=== PATIENT | female | born 1965 | race Caucasian/White ===

== ENCOUNTER 2019-02-24 19:02 | Inpatient (IN) | payer SELFPAY ==
[2019-02-24] MEDS ORDERED: Aspirin Chewable 81 MG TAB ONE (19:32)
[2019-02-24] MEDS ORDERED: Nitroglycerin 0.4 MG TAB 1 EACH ONE (19:32)
[2019-02-24 19:38] LABS: #Eosinphils 0.3 thou/uL (0.0-0.7); #Lymphocytes 1.8 thou/uL (1.20-3.40); #Monocytes 0.6 thou/uL (0.11-0.59); #Neutrophils 4.6 thou/uL (1.40-6.50); %Basophils 0.5 % (0.0-1.0); %Eosinophils 3.4 % (0.0-10.0); %Lymphocytes 25.1 % (21.0-51.0); %Monocytes 7.6 % (0.0-10.0); %Neutrophils 63.4 % (42.0-75.0); Hemoglobin 13.8 g/dL (12.0-16.0); Mean Corpuscular HGB CONC 33.8 g/dL (32.0-36.0); Mean Corpuscular Hemoglobin 29.4 pg (27.0-31.0); Mean Corpuscular Volume 87.1 fL (78.0-98.0); Mean Platelet Volume 7.2 fL (7.4-10.4); Platelet Count 261 thou/uL (130-400); White Blood Cell (WBC) Count 7.3 thou/uL (4.8-10.8)
--- NOTE | 2019-02-24 19:45 | RAD ---
FRONTAL RADIOGRAPH CHEST: 02/24/19 COMPARISON: 06/18/16 HISTORY: Chest pain for three days. FINDINGS: No pneumothorax, pleural fluid, focal consolidation, or alveolar edema. Heart and mediastinal contour s are unremarkable. IMPRESSION: No acute findings. POS: ANDERSON
[2019-02-24 19:58] LABS: ALT (SGPT) 48 U/L (8-55); AST (SGOT) 26 U/L (5-34); Albumin 4.2 g/dL (3.5-5.0); Alkaline Phosphatase 87 U/L (40-110); Anion Gap 15 mmol/L (10-20); BUN (Urea Nitrogen) 13 mg/dL (9.8-20.1); Bilirubin, Total 0.3 mg/dL (0.2-1.2); CK (CPK) 80 U/L (29-168); Calc. Creatinine Clearance 0 mL/min (70-130); Calcium 9.3 mg/dL (7.8-10.44); Carbon Dioxide 25 mmol/L (22-29); Chloride 102 mmol/L (98-107); Estimated GFR-MDRD 74; Globulin 3.1 g/dL (2.4-3.5); Glucose 189 mg/dL (70-105); Potassium 3.9 mmol/L (3.5-5.1); Protein, Total 7.3 g/dL (6.0-8.3); Sodium 138 mmol/L (136-145)
[2019-02-24] MEDS ORDERED: Acetaminophen 500 MG TAB PO PRN (23:38)
[2019-02-24] MEDS ORDERED: Nitroglycerin 0.4 MG TAB (25 Tab Bottle) PO PRN (23:38)
[2019-02-24] MEDS ORDERED: Ondansetron PF 4 MG/2 ML Vial IVP PRN (23:38)
[2019-02-24] MEDS ORDERED: Ondansetron ODT 4 MG TAB PO PRN (23:38)
[2019-02-24] MEDS ORDERED: hydrALAZINE 20 MG/ML VIAL SLOW IVP PRN (23:38)
[2019-02-25 02:15] LABS: Troponin I Less than 0.010 ng/mL (< 0.028)
--- NOTE | 2019-02-25 05:23 | HP ---
PRIMARY CARE PROVIDER: Dr. Shilo Das. CHIEF COMPLAINT: Chest pain. HISTORY OF PRESENT ILLNESS: This is a 53-year-old female, who was initially evaluated at [facility] Emergency Department being referred by her primary care provider for ongoing chest pain. The patient underwent CT imaging of her coronary arteries showing diffuse calcium deposition as well as narrowing concerning for severe stenosis most notable of the left anterior descending. The patient admits to decreased activity and exercise tolerance with rapid shortness of breath and fatigue with minimal activity or ambulation. The patient admits to difficulty carrying on conversations due to increased shortness of breath with speaking. The patient denied any specific increased lower extremity swelling, but has noted chest pain with radiation to her shoulders and left upper extremity. The patient denied any known coronary artery disease and underwent a nuclear cardiac stress test in 2017 showing no reversible or fixed ischemia. The patient denies taking chronic aspirin therapy, but has been treated for hypertension and diabetes mellitus with oral therapy. The patient does admit to a strong family history of early coronary artery disease. The patient denies any current tobacco use, but does admit to remote tobacco use. The patient initially in the emergency room rated her chest pain as 10/10 with currently 3/10. The patient denied any documented fever, chills, trauma or injury. In the emergency room, the patient received sublingual nitroglycerin x2 doses in addition to aspirin 324 mg. Chest imaging was unremarkable and the patient was referred to the Hospitalist Service for evaluation. PAST MEDICAL HISTORY: 1. Hypertension. 2. Hypothyroidism. 3. Diabetes mellitus type 2. 4. Hyperlipidemia. 5. Anxiety/depression. PAST SURGICAL HISTORY: 1. Status post LASIK repair. 2. Status post breast cyst removal. 3. Status post bilateral tubal ligation. 4. Status post adenoidectomy. CURRENT MEDICATIONS: 1. Levothyroxine 125 mcg p.o. daily. 2. Lisinopril 20 mg p.o. daily. 3. Metformin 500 mg p.o. b.i.d. 4. Lipitor 80 mg p.o. daily. 5. Citalopram 20 mg p.o. daily. 6. Advair Diskus two puffs inhaled b.i.d. ALLERGIES: NO KNOWN DRUG ALLERGIES. FAMILY HISTORY: Multiple family members with coronary artery disease. SOCIAL HISTORY: The patient is . Resides in [place], [place]. Self-employed. No current alcohol, tobacco, or illicit drug use. REVIEW OF SYSTEMS: CONSTITUTIONAL: Negative for weight loss or gain, ability to conduct usual activities. SKIN: Negative for rash, itching. EYES: Negative for double vision, pain. ENT/MOUTH: Negative for nose bleeding, neck stiffness, pain, tenderness. CARDIOVASCULAR: Negative for palpitations, dyspnea on exertion, orthopnea. RESPIRATORY: Negative for shortness of breath, wheezing, cough, hemoptysis, fever or night sweats. GASTROINTESTINAL: Negative for poor appetite, abdominal pain, heartburn, nausea , vomiting, constipation, or diarrhea. GENITOURINARY: Negative for urgency, frequency, dysuria, nocturia. MUSCULOSKELETAL: Negative for pain, swelling. NEUROLOGIC/PSYCHIATRIC: Negative for anxiety, depression. ALLERGY/IMMUNOLOGIC: Negative for skin rash, bleeding tendency. Otherwise negative except as stated per HPI. PHYSICAL EXAMINATION: VITAL SIGNS: On admission, blood pressure 188/88, pulse 75, respiratory rate 20 , temperature 97.8 degrees Fahrenheit, O2 saturation 99% on room air. GENERAL APPEARANCE: This is a 53-year-old female, alert and oriented x3, pleasant, responsive, in no acute distress. HEENT: Pupils are equal, round, reactive to light and accommodation. Extraocular muscles are intact. No scleral icterus. No conjunctival injection. Nares are patent. OP is clear. Teeth in good repair. NECK: Supple. No cervical adenopathy. No thyromegaly. No carotid bruits. No JVD appreciated. Cervical spine with full active and passive range of motion. No meningeal signs noted. CHEST: Lungs are clear to auscultation bilaterally. CARDIOVASCULAR: S1, S2 without noted murmur, rub, or gallop. ABDOMEN: Obese, soft, nontender, and nondistended. Bowel sounds are positive in all 4 quadrants. There is no hepatosplenomegaly. No abdominal bruits. No rebound or guarding appreciated. EXTREMITIES: Warm and dry with fair turgor. No clubbing, cyanosis, or asymmetric edema appreciated. Pulses palpable distally at the dorsalis pedis, posterior tibial, and popliteal arteries bilaterally. Capillary refill less than 2 seconds. NEUROLOGIC: Cranial nerves 2 through 12 are grossly intact. No focal or lateralizing signs appreciated. PERTINENT LABORATORY AND X-RAY FINDINGS: Basic metabolic profile within normal limits. LFTs within normal limits. Total CK of 80. Troponin I negative x2. CBC within normal limits. Portable chest x-ray dated 02/24/2019, showed no acute cardiopulmonary process. CT angiogram of the coronary arteries dated 02/23/2019 , showed multiple plaques limiting luminal assessment. Concern for severe stenosis of the LAD. Telemetry shows sinus mechanism with heart rates in the 70s. EKG dated 02/24/2019, by my interpretation shows sinus mechanism with heart rates in the 70s. Normal R-wave progression noted in the precordial leads. Normal axis. No acute ST-T wave changes appreciated. ASSESSMENT AND PLAN: 1. Chest pain. The patient will be observed on the telemetry unit. CT angiogram of the coronary arteries showing diffuse calcium deposition and concern for LAD stenosis. Consult Cardiology Service for further evaluation and consideration for left heart catheterization. Continue aspirin 325 mg daily. Check fasting lipid profile. Continue Lipitor 80 mg p.o. daily. Check 2D transthoracic echocardiogram for wall motion abnormality and ejection fraction. 2. Hypertension. Labile. Resume home blood pressure regimen and monitor clinical response. 3. Hypothyroidism. Continue levothyroxine 125 mcg daily. 4. Hyperlipidemia. Continue Lipitor 80 mg p.o. at bedtime. 5. Diabetes mellitus type 2. Insulin sliding scale for reflexive coverage. ADA diet when tolerating p.o. intake. Hold metformin pending cardiac evaluation. 6. Prophylaxis. SCDs while in bed. Pepcid 20 mg p.o. b.i.d.. CODE STATUS: Full. Surrogate medical decision maker is the patient's spouse. Job ID: [id number] [facility]
[2019-02-25 05:41] LABS: Cardiac Risk 7.9 (Less than 4.5)
[2019-02-25 05:43] LABS: Troponin I Less than 0.010 ng/mL (< 0.028)
[2019-02-25] MEDS: Mometasone/Formoterol 120 PUFF INHALER INH SCH ×2 (07:36→19:12)
--- NOTE | 2019-02-25 08:30 | CON ---
DATE OF CONSULTATION: REASON FOR CONSULTATION: Chest pain and abnormal coronary CTA. HISTORY OF PRESENT ILLNESS: Ms. De La Cruz is a 53-year-old woman who recently presented with chest discomfort and shortness of breath. She states her shortness of breath has been noted over the last 2 weeks. Prior to that, she had no current symptoms. She also complains of chest tightness. It occurs mainly with exertion. She proceed to an outlying emergency room, where she underwent a coronary CTA. The CT scan did suggest significant calcification in the proximal to mid LAD suggesting greater than 70% stenosis. PAST MEDICAL HISTORY: Hypertension, hypothyroidism, diabetes mellitus, hyperlipidemia, anxiety and depression, BTL, adenoidectomy and LASIK repair. HOME MEDICATIONS: Include lisinopril, metformin, levothyroxine, Lipitor, citalopram, and Advair. ALLERGIES: NONE. 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 No current tobacco or alcohol use. REVIEW OF SYSTEMS: A 10-point review of systems is reviewed as above, otherwise negative. PHYSICAL EXAMINATION: GENERAL: She is morbidly obese with BMI of 43. VITAL SIGNS: Blood pressure 144/71, pulse 70 and temperature afebrile. NEUROLOGIC: The patient is alert and oriented x3 with no focal neurologic deficits. HEENT: Sclerae without icterus. Mouth has moist mucous membranes with normal pallor. NECK: No JVD. Carotid upstroke brisk. No bruits bilaterally. LUNGS: Clear to auscultation with unlabored respirations. BACK: No scoliosis or kyphosis. CARDIAC: Regular rate and rhythm with normal S1 and S2. No S3 or S4 noted. No significant rubs, murmurs, thrills, or gallops noted throughout the precordium. PMI is not displaced. There is no parasternal heave. ABDOMEN: Soft, nontender, nondistended. No peritoneal signs present. No hepatosplenomegaly. No abnormal striae. EXTREMITIES: 2+ femoral and 2+ dorsalis pedis pulses. No cyanosis, clubbing, or edema. SKIN: No gross abnormalities. DIAGNOSTIC STUDIES: EKG shows a normal sinus rhythm with no acute ST-T wave changes. CK and troponin negative. Hemoglobin 13.8. Creatinine 0.81. IMPRESSION: 1. Chest pain. 2. Shortness of breath. 3. Coronary artery disease. 4. Diabetes mellitus. RECOMMENDATIONS: Ms. De La Cruz's symptoms certainly suggest angina. I discussed medical therapy versus stress study versus proceeding with coronary angiography. I discussed risks and benefits of all 3 options. She opted to proceed with coronary angiography. This certainly seems reasonable given the findings on coronary CTA. I discussed procedure in full detail with Ms. De La Cruz. Risks included, but not limited to the following: I discussed the procedure in full detail with the patient. The risks of the procedure were also discussed. The risks of the procedure include but are not limited to the following: , stroke, [place], need for emergency surgery, loss of limb, bleeding, and infection, as well as a reaction to the dye causing kidney failure and needing long-term dialysis. I also discussed the risks of PCI to include all of the above including coronary dissection and perforation in addition to acute stent thrombosis and restenosis. All questions about the procedure were answered. Given the above, the patient agreed to proceed with coronary angiography and possible PCI. All questions were answered given the above. She agreed to proceed with above procedure. Further recommendations pending the above. Job ID: [id number]
[2019-02-25] MEDS: Famotidine 20 MG TAB PO SCH ×2 (08:49→19:42)
[2019-02-25] MEDS: Lisinopril 20 MG TAB PO SCH (08:49)
[2019-02-25] MEDS ORDERED: Escitalopram Oxalate 20 mg Tablet PO SCH (09:00)
[2019-02-25] MEDS ORDERED: Levothyroxine Sodium 125 MCG TAB PO SCH (09:00)
[2019-02-25] MEDS ORDERED: Aspirin 325 mg Enteric Coated Tablet PO SCH (09:00)
[2019-02-25] MEDS ORDERED: Communication Order-Pharmacy FS SCH ×2 (10:45→14:16)
[2019-02-25] MEDS ORDERED: Heparin 10,000 UNITS/1 ML VIAL ONE (11:43)
[2019-02-25] MEDS ORDERED: Verapamil 5 MG/2 ML VIAL ONE (11:43)
[2019-02-25] MEDS ORDERED: Lidocaine 1% (PF) 30 ML VIAL ONE (11:44)
[2019-02-25] MEDS ORDERED: Heparin (Artline) 1,000 ML ONE (11:44)
[2019-02-25] MEDS ORDERED: Nitroglycerin 100MG/250ML BOT 250 ML ONE (11:44)
[2019-02-25] MEDS ORDERED: Fentanyl 100 MCG/2 ML VIAL ONE (12:49)
[2019-02-25] MEDS ORDERED: Midazolam HCl 2 mg/2 ml Vial ONE (12:49)
[2019-02-25] MEDS ORDERED: Nitroglycerin 0.4 MG TAB (25 Tab Bottle) SL PRN (13:31)
[2019-02-25] MEDS ORDERED: Acetaminophen/Codeine 30-300mg Tablet PO PRN ×2 (13:31)
[2019-02-25] MEDS ORDERED: Sodium Chloride 0.9% 200 ML IV PRN (13:31)
[2019-02-25] MEDS ORDERED: Iopamidol 370 76% 100 ML VIAL ONE (13:36)
[2019-02-25] MEDS: Sodium Chloride 0.9% 1,000 ML IV SCH ×2 (15:00→20:45)
[2019-02-25 15:21] LABS: Hemoglobin A1c 7.1 % (4.0-6.0)
--- NOTE | 2019-02-25 17:36 | CON ---
DATE OF CONSULTATION: HISTORY OF PRESENT ILLNESS: This is a 53-year-old female with multiple cardiovascular risk factors, who was complaining of some chest discomfort and dyspnea on exertion and referred by her primary care physician from [facility] to get a CT calcium study. This demonstrated significant calcification, particularly in her LAD distribution. Once she found this out, her pain became more significant, radiating down into the left arm, and lasted for about 3 days, at which time she presented to the emergency room, where she was found to have normal cardiac enzymes. Resting EKG was not remarkable. Cardiac catheterization demonstrated significant disease in the LAD and diagonal, both separate, as well as a very small ramus with significant disease, a normal OM. Right coronary artery was diffusely diseased with a codominant PDA and take vessels coming off the inferior surface of the heart with the 2nd one appearing to be slightly larger than the 1st. PAST MEDICAL HISTORY: As mentioned, this is positive for multiple cardiovascular risk factors including a pack per day smoking history, although she states that she quit smoking about 4 weeks ago, although still wheezes. She has diabetes mellitus with an A1c of 7. She has hypertension and dyslipidemia. She also has anxiety and depression. PAST SURGICAL HISTORY: Includes; 1. LASIK. 2. Tubal ligation. 3. Tonsillectomy and adenoidectomy. SOCIAL HISTORY: She is accompanied by her fred. She works as an senior project accountant and her daughter is also present and is a nurse at the hospital. ALLERGIES: SHE HAS NO KNOWN ALLERGIES. MEDICATIONS AT HOME: Include; 1. Advair Diskus one inhalation b.i.d. 2. Atorvastatin 80 a day. 3. Metformin 500 a day. 4. Lisinopril 20 a day. 5. Levothyroxine 125 a day. 6. Lexapro 20 a day. PHYSICAL EXAMINATION: VITAL SIGNS: Her blood pressure is 150/90, heart rate is 66. GENERAL: On examination, she is alert, cooperative lady. Height 5 feet 6 inches, weight 270, BMI 44. NECK: No carotid bruits. LUNGS: Clear to auscultation. CARDIAC: Regular rate and rhythm. No murmurs. ABDOMEN: Obese and nontender. EXTREMITIES: She has no peripheral edema. Palpable pedal pulses. She is right arm dominant with a good left radial pulse. PLAN: Plan at this time is for coronary artery bypass grafting to the LAD, diagonal, and right PDA. Informed consent has been obtained. Job ID: [id number]
[2019-02-25] MEDS ORDERED: Atorvastatin Calcium 40 MG TAB PO SCH (21:00)
[2019-02-26] MEDS ORDERED: CEFAZOLIN 2 GM in Premix Bag 1 BAG IVPB SCH (00:15)
[2019-02-26] MEDS: Sodium Chloride 0.9% 1,000 ML IV SCH (05:03)
[2019-02-26] MEDS: Lisinopril 20 MG TAB PO SCH (05:03)
[2019-02-26] MEDS: Mometasone/Formoterol 120 PUFF INHALER INH SCH (07:53)
--- NOTE | 2019-02-26 08:24 | PRG ---
DATE OF SERVICE: 02/26/2019 SUBJECTIVE: Ms. De La Cruz is doing well. No current complaints. No chest pain or pressure noted. She is scheduled for CV surgery this afternoon. OBJECTIVE: VITAL SIGNS: Blood pressure 112/60, pulse 76, temperature 98.3. LUNGS: Clear to auscultation. HEART: Regular rate and rhythm. ABDOMEN: Soft, nontender, nondistended. EXTREMITIES: No edema. PERTINENT LABORATORY DATA: Hemoglobin 13.8. IMPRESSION: 1. Severe coronary artery disease. 2. Tobacco abuse. 3. Diabetes mellitus. RECOMMENDATIONS: The patient is scheduled for bypass surgery this afternoon. Continue aspirin and atorvastatin in addition to lisinopril. Add low-dose beta-dora therapy. Job ID: [id number]
[2019-02-26] MEDS ORDERED: Acetaminophen/Codeine 30-300mg Tablet PO PRN (14:17)
[2019-02-26] MEDS ORDERED: Acetaminophen 325 MG TAB PO PRN (14:17)
[2019-02-26] MEDS ORDERED: Ondansetron ODT 4 MG TAB PO PRN (14:18)
[2019-02-26] MEDS ORDERED: Ondansetron PF 4 MG/2 ML Vial IVP PRN (14:18)
[2019-02-26] MEDS ORDERED: Bisacodyl 10 MG SUPP PR PRN (14:26)
[2019-02-26] MEDS ORDERED: Escitalopram Oxalate 20 mg Tablet PO SCH (14:30)
[2019-02-26] MEDS ORDERED: Polyethylene Glycol 3350 17 GM Packet PO SCH (14:30)
[2019-02-26] MEDS ORDERED: Aspirin 325 mg Enteric Coated Tablet PO SCH (14:30)
[2019-02-26] MEDS ORDERED: Senokot S 8.6-50 MG TAB PO SCH (14:45)
[2019-02-26] MEDS: Nitroglycerin 0.4 MG TAB (25 Tab Bottle) SL PRN ×2 (15:51→16:01)
[2019-02-26] MEDS ORDERED: Mometasone/Formoterol 120 PUFF INHALER INH SCH (18:30)
--- NOTE | 2019-02-26 20:48 | PDOC.HOSPP ---
- Subjective Encounter Date: 02/26/19 Encounter Time: 14:00 Subjective: Patient seen and examined for CAD. No CP. No new complaints. No overnight events - Objective Vital Signs & Weight: Vital Signs (12 hours) Temp Pulse Resp BP Pulse Ox 02/26/19 19:20 98.3 F 80 13 127/60 95 02/26/19 18:57 76 16 99 02/26/19 15:25 98.5 F 82 15 122/65 96 02/26/19 11:57 98.2 F 67 20 143/78 H 94 L Weight Weight 276 lb 9.6 oz I&O: 02/25/19 02/26/19 02/27/19 06:59 06:59 06:59 Intake Total 360 2375 Output Total 400 900 Balance -40 1475 Result Diagrams: 02/24/19 19:25 02/24/19 19:25 EKG Reviewed by me: Yes (Tele SR) Hospitalist ROS - Review of Systems Respiratory: denies: cough, dry, shortness of breath, hemoptysis, SOB with excertion, pleuritic pain, sputum, wheezing, other Cardiovascular: denies: chest pain, palpitations, orthopnea, paroxysmal noc. dyspnea, edema, light headedness, other - Medication Medications: Active Medications Generic Name Dose Route Start Last Admin Trade Name Freq PRN Reason Stop Dose Admin Mometasone Furoate/Formoterol Fumar 2 puff 02/26/19 18:30 02/26/19 18:57 Dulera 200 Mcg/5 Mcg Inhaler INH 02/26/19 23:59 2 puff BID-RT DYLON Administration Nitroglycerin 0.4 mg 02/26/19 14:17 02/26/19 16:01 Nitrostat SL 0.4 mg Q5MIN PRN Administration Chest Pain - Exam General Appearance: NAD Neck: supple, no JVD Heart: RRR, no gallops Respiratory: CTAB, no rales Gastrointestinal: soft, non-tender, normal bowel sounds Extremities: no edema Hosp A/P - Plan DVT proph w/SCDs CP Severe CAD Morbid Obesity 44.6 DM2 Anxiety PLAN: Cont ASA/Statins/ACEI Await CABG Cont other meds
[2019-02-26] MEDS ORDERED: Atorvastatin Calcium 40 MG TAB PO SCH (21:00)
[2019-02-27] MEDS ORDERED: Albumin 5% 500 ML ONE (06:39)
[2019-02-27] MEDS ORDERED: Midazolam HCl 5 mg/5 ml Vial ONE (06:47)
[2019-02-27] MEDS ORDERED: Fentanyl 250 MCG/5 ML VIAL ONE (06:47)
[2019-02-27] MEDS ORDERED: Vecuronium 10 MG VIAL ONE ×2 (06:48→11:00)
[2019-02-27] MEDS ORDERED: Dexmedetomidine 200 MCG/2 ML VIAL ONE (06:48)
[2019-02-27] MEDS ORDERED: Midazolam HCl 2 mg/2 ml Vial ONE (07:07)
[2019-02-27] MEDS ORDERED: Heparin 10,000 UNITS/1 ML VIAL 30,000 UNITS in Sodium Chloride 0.9% 1,000 ML FS SCH (07:30)
[2019-02-27] MEDS ORDERED: Insulin Regular 300 UNITS/3 ML VIAL ONE (08:42)
[2019-02-27] MEDS ORDERED: Lisinopril 20 MG TAB PO SCH (09:00)
[2019-02-27] MEDS ORDERED: Protamine Sulfate 250 MG/25 ML VIAL ONE (11:00)
[2019-02-27] MEDS ORDERED: Cardioplegic Soln 1,000 ML BAG ONE (11:00)
[2019-02-27] MEDS ORDERED: Heparin 30,000 units/30 ml VIAL ONE (11:00)
[2019-02-27] MEDS ORDERED: Norepinephrine 4 MG/4 ML VIAL ONE (11:00)
[2019-02-27] MEDS ORDERED: Sodium Bicarb 50 MEQ/50 ML Abboject 8.4% SYRINGE ONE (11:00)
[2019-02-27] MEDS ORDERED: Magnesium Sulfate 1 GM/2 ML VIAL ONE (11:00)
[2019-02-27] MEDS ORDERED: Thrombin 5000 UNITS/5 ML VIAL ONE (11:00)
[2019-02-27] MEDS ORDERED: Heparin 5,000 UNITS/ML VIAL ONE (11:00)
[2019-02-27] MEDS ORDERED: PROPOFOL 200 MG/20 ML VIAL ONE (11:00)
[2019-02-27] MEDS ORDERED: Papaverine 60 MG/2 ML VIAL ONE (11:00)
[2019-02-27] MEDS ORDERED: Potassium Chloride 60 MEQ/30 ML VIAL ONE (11:00)
[2019-02-27] MEDS ORDERED: Calcium Chloride 1 GM/10 ML Abboject SYRINGE ONE (11:00)
[2019-02-27] MEDS ORDERED: Lidocaine 1% PF 5 ML VIAL ONE (11:00)
[2019-02-27] MEDS ORDERED: PHENYLEPHRINE-NS 100 MCG/ML 10 ML SYRINGE ONE (11:00)
[2019-02-27] MEDS ORDERED: ePHEDrine/0.9% NaCl/PF SYRINGE 50 mg/10 ml ONE (11:00)
[2019-02-27] MEDS ORDERED: Lidocaine 2% PF 100 mg/5 ml Syringe ONE (11:00)
[2019-02-27] MEDS ORDERED: Glycopyrrolate 0.2 MG/ML 5 ML SYRINGE ONE (11:00)
[2019-02-27] MEDS ORDERED: Rocuronium Bromide 10 MG/ML (10ML VIAL) ONE (11:00)
[2019-02-27] MEDS ORDERED: Aminocaproic Acid 5 GM/20 ML VIAL ONE (11:00)
[2019-02-27] MEDS ORDERED: Potassium Chloride 20 MEQ/100 ML PREMIX BAG IVPB PRN (12:55)
[2019-02-27] MEDS ORDERED: Promethazine HCl 25 MG/ML VIAL IM PRN (12:55)
[2019-02-27] MEDS ORDERED: hydrALAZINE 20 MG/ML VIAL SLOW IVP PRN (12:55)
[2019-02-27] MEDS ORDERED: Norepinephrine 8 MG/0.9% NS 250 ML IVPB PRN (12:55)
[2019-02-27] MEDS ORDERED: Post-Op Insulin Drip Protocol IVPB ONE (12:55)
[2019-02-27] MEDS ORDERED: Mag-Al 1200 mg/1200 mg/30 ML UDCUP PO PRN (12:55)
[2019-02-27] MEDS ORDERED: niCARdipine 25 MG in Sodium Chloride 0.9% 250 ML 240 ML IVPB PRN (12:55)
[2019-02-27] MEDS ORDERED: DOPamine 400 MG/D5W 250 ML 250 ML IVPB PRN (12:55)
[2019-02-27] MEDS ORDERED: Guaifenesin DM 100-10/5 ML UDCUP PO PRN (12:55)
[2019-02-27] MEDS ORDERED: HYDROcodone/Acetaminophen 5/325 mg Tablet PO PRN (12:55)
[2019-02-27] MEDS ORDERED: Morphine 2 MG/ML SYRINGE SLOW IVP PRN (12:55)
[2019-02-27] MEDS ORDERED: Nitroglycerin 50 MG/250 ML BOT 250 ML IVPB PRN (12:55)
[2019-02-27] MEDS ORDERED: Bisacodyl 5 MG TAB PO PRN (12:55)
[2019-02-27] MEDS ORDERED: Bisacodyl 10 MG SUPP PR PRN (12:55)
[2019-02-27] MEDS ORDERED: Fentanyl 100 MCG/2 ML VIAL SLOW IVP PRN ×2 (12:55)
[2019-02-27] MEDS ORDERED: Ondansetron PF 4 MG/2 ML Vial IVP PRN (12:55)
[2019-02-27] MEDS ORDERED: Hetastarch 6% 500 ML 500 ML IVPB PRN (12:55)
[2019-02-27 12:59] LABS: Actual Bicarbonate (HCO3a) 25.8 mEq/L (22-28); Base Excess (BEa) -2.1 mEq/L (-2.0 to +3.0); Calcium, Ionized 1.14 mmol/L (1.12-1.30); Carboxyhemoglobin (COHb) 0.9 gm% (0.0-3.0); Hemoglobin (Hb) 12.9 g/dL (12.0-16.0); O2 Tension (PaO2) 63.1 mmHg (80.0-100.0); Potassium - ABG Lab 4.44 mmol/L (3.70-5.30); pH, Arterial 7.27 (7.35-7.45)
[2019-02-27 13:00] LABS: Puncture Site ALINE
[2019-02-27] MEDS: Lactated Ringer's 1,000 ML IV SCH ×2 (13:00→23:11)
[2019-02-27] MEDS ORDERED: Magnesium 2 GM/50 ML 2 GM in Premix Bag 1 BAG IVPB SCH (13:00)
[2019-02-27] MEDS ORDERED: Dextrose 5% in Water 1,000 ML IV PRN (13:03)
[2019-02-27] MEDS ORDERED: HUMULIN R 100 UNITS in Sodium Chloride 0.9% 100 ML IVPB SCH (13:03)
[2019-02-27] MEDS ORDERED: Dextrose 50% Abboject 50 ML SYRINGE SLOW IVP PRN (13:03)
[2019-02-27] MEDS ORDERED: Insulin Regular 300 UNITS/3 ML VIAL SC PRN (13:03)
[2019-02-27 13:10] LABS: Hemoglobin 12.2 g/dL (12.0-16.0); Mean Corpuscular HGB CONC 33.4 g/dL (32.0-36.0); Mean Corpuscular Hemoglobin 29.4 pg (27.0-31.0); Mean Corpuscular Volume 87.8 fL (78.0-98.0); Mean Platelet Volume 7.6 fL (7.4-10.4); Platelet Count 274 thou/uL (130-400); RBC Distribution Width 13.1 % (11.5-14.5); Red Blood Cell (RBC) Count 4.16 mill/uL (4.20-5.40); White Blood Cell (WBC) Count 21.7 thou/uL (4.8-10.8)
[2019-02-27] MEDS ORDERED: Ketorolac Tromethamine 30 MG/ML VIAL IVP SCH (13:15)
[2019-02-27 13:19] LABS: INR-International Normal Ratio 1.2; PTT 27.7 SEC (22.9-36.1); Prothrombin Time 14.8 SEC (12.0-14.7)
[2019-02-27] MEDS: CEFAZOLIN 2 GM in Premix Bag 1 BAG IVPB SCH ×2 (13:23→22:12)
[2019-02-27] MEDS ORDERED: Norepinephrine 8 MG in Dextrose 5% in Water 242 ML IVPB PRN (13:30)
[2019-02-27 13:32] LABS: Band 22 % (5-11); Eosinophils 2 % (0-10); Lymphocytes 11 % (21-51); MDiff Complete? YES; Monocytes 4 % (0-10); Neutrophil 61 % (42-75); Platelet Morphology Comment Appears Adequate; RBC Morphology Normal
[2019-02-27 13:35] LABS: Anion Gap 11 mmol/L (10-20); BUN (Urea Nitrogen) 12 mg/dL (9.8-20.1); Calc. Creatinine Clearance 174 mL/min (70-130); Carbon Dioxide 25 mmol/L (22-29); Chloride 109 mmol/L (98-107); Estimated GFR-MDRD 81; Potassium 4.6 mmol/L (3.5-5.1); Sodium 140 mmol/L (136-145)
[2019-02-27 13:36] LABS: Calcium 8.1 mg/dL (7.8-10.44); Glucose 178 mg/dL (70-105)
--- NOTE | 2019-02-27 13:57 | RAD ---
Chest AP view INDICATION: Postop COMPARISON: February 27, 2019 at 12:06 PM FINDINGS: Lungs:Left perihilar airspace opacities persist Cardiac silhouette:Cardiomegaly and post-CABG changes stable Pulmonary vasculature:Pulmonary vascular congestion persists Pleural spaces:Small bilateral pleural effusions, left greater than right persist Upper abdomen:No abnormality seen. Osseous structures: No acute osseous abnormality. Additional findings:Patient remains intubated with a right subclavian central venous catheter. [place]lin e mediastinal drain is again noted. No pneumothorax is noted. IMPRESSION: Stable exam.
--- NOTE | 2019-02-27 14:04 | RAD ---
SINGLE VIEW OF THE CHEST: COMPARISON: 02/24/2019. HISTORY: Open heart surgery. FINDINGS: A single view of the chest shows an enlarged cardiomediastinal silhouette. The patient is status pos t sternotomy. There is a central venous catheter with its tip in the superior vena cava. An endotra cheal tube is seen with its tip between the clavicles. Mediastinal drains are seen. There is no geraldine dence of consolidation, mass, pneumothorax, or pleural effusion. IMPRESSION: 1. Appropriate position of lines and tubes status post sternotomy. 2. Cardiomegaly. POS: CET
[2019-02-27] MEDS: Ketorolac Tromethamine 30 MG/ML VIAL IVP SCH (17:36)
[2019-02-27] MEDS: HYDROcodone/Acetaminophen 5/325 mg Tablet PO PRN ×2 (17:39→22:10)
[2019-02-27 18:33] LABS: Hemoglobin 11.2 g/dL (12.0-16.0)
[2019-02-27 18:46] LABS: Potassium 4.5 mmol/L (3.5-5.1)
[2019-02-27] MEDS: Famotidine/PF 20 mg/2ml Vial SLOW IVP SCH (20:22)
[2019-02-27] MEDS ORDERED: Atorvastatin Calcium 40 MG TAB PO SCH (21:00)
--- NOTE | 2019-02-27 23:09 | PDOC.HOSPP ---
- Subjective Encounter Date: 02/27/19 Encounter Time: 07:00 Subjective: Patient seen and examined for CAD. No CP. No new complaints. No overnight events - Objective Vital Signs & Weight: Vital Signs (12 hours) Temp Pulse Resp BP Pulse Ox 02/27/19 20:00 98 02/27/19 16:00 98.4 F 99 02/27/19 15:41 100 02/27/19 15:04 71 89/54 L 02/27/19 14:45 16 02/27/19 13:09 70 101/61 02/27/19 13:00 97.9 F 02/27/19 12:43 98.2 F 22 H 100 Weight Weight 276 lb 9.6 oz Most Recent Monitor Data Heart Rate from ECG 88 NIBP 99/56 NIBP BP-Mean 70 Respiration from ECG 20 SpO2 94 I&O: 02/26/19 02/27/19 02/28/19 06:59 06:59 06:59 Intake Total 2375 520 1609 Output Total 900 1300 1013 Balance 1475 -780 596 Result Diagrams: 02/27/19 18:24 02/27/19 18:24 Additional Labs: Accuchecks 02/27/19 02/27/19 02/27/19 22:07 21:11 20:22 POC Glucose 110 117 H 132 H 02/27/19 02/27/19 02/27/19 19:16 18:18 16:23 POC Glucose 127 H 138 H 153 H 02/27/19 02/27/19 02/27/19 15:25 14:28 12:54 POC Glucose 177 H 206 H 186 H 02/27/19 02/27/19 02/27/19 11:32 10:44 10:15 POC Glucose 108 150 H 162 H 02/27/19 02/27/19 09:41 08:10 POC Glucose 189 H 177 H EKG Reviewed by me: Yes (Tele SR) Hospitalist ROS - Review of Systems Respiratory: denies: cough, dry, shortness of breath, hemoptysis, SOB with excertion, pleuritic pain, sputum, wheezing, other Cardiovascular: denies: chest pain, palpitations, orthopnea, paroxysmal noc. dyspnea, edema, light headedness, other - Medication Medications: Active Medications Generic Name Dose Route Start Last Admin Trade Name Freq PRN Reason Stop Dose Admin Hydrocodone Bitart/Acetaminophen 2 tab 02/27/19 12:55 02/27/19 22:10 [place] 5/325 PO 2 tab Q4H PRN Administration Severe Pain (7-10) Albumin Human 12.5 gm 02/27/19 12:55 02/27/19 16:01 Albumin 5% IVPB 02/28/19 12:56 12.5 gm Q6H PRN Administration To Maintain SBP> 90 mmHG Atorvastatin Calcium 80 mg 02/27/19 21:00 02/27/19 20:20 Lipitor PO 80 mg HS DYLON Administration Famotidine 20 mg 02/27/19 21:00 02/27/19 20:22 Pepcid SLOW IVP 20 mg Q12HR DYLON Administration Fentanyl 25 mcg 02/27/19 12:55 02/27/19 21:02 Sublimaze SLOW IVP 03/01/19 12:16 25 mcg Q2H PRN Administration Moderate Pain (4-6) Cefazolin Sodium/Dextrose 2 gm 50 mls @ 100 mls/hr 02/27/19 14:00 02/27/19 22 :12 / Device IVPB 02/28/19 06:29 50 mls Q8HR DYLON Administration Lactated Ringer's 1,000 mls @ 75 mls/hr 02/27/19 12:55 02/27/19 13:00 Lactated Ringer's IV 1,000 mls .[id number] DYLON Administration Insulin Human Regular 100 101 mls @ 0 mls/hr 02/27/19 13:03 02/27/19 13:24 units/ Sodium Chloride IVPB 101 mls INF DYLON Administration Protocol As Directed Ketorolac Tromethamine 15 mg 02/27/19 18:00 02/27/19 17:36 Toradol IVP 03/02/19 18:01 15 mg Q6HR DYLON Administration - Exam General Appearance: NAD Neck: supple, no JVD Heart: RRR, no gallops Respiratory: CTAB, no rales Gastrointestinal: soft, normal bowel sounds Hosp A/P - Plan DVT proph w/SCDs CP Severe CAD Morbid Obesity 44.6 DM2 Anxiety PLAN: CABG today Cont ASA/Statins Cont other meds Cont supportive care
[2019-02-28] MEDS: Ketorolac Tromethamine 30 MG/ML VIAL IVP SCH ×4 (00:17→18:03)
[2019-02-28] MEDS: HYDROcodone/Acetaminophen 5/325 mg Tablet PO PRN (03:26)
[2019-02-28 04:27] LABS: #Lymphocytes 1.7 thou/uL (1.20-3.40); #Neutrophils 9.6 thou/uL (1.40-6.50); %Eosinophils 0.1 % (0.0-10.0); %Lymphocytes 13.4 % (21.0-51.0); %Monocytes 7.9 % (0.0-10.0); %Neutrophils 78.6 % (42.0-75.0); Hemoglobin 10.1 g/dL (12.0-16.0); Mean Corpuscular HGB CONC 33.4 g/dL (32.0-36.0); Mean Corpuscular Volume 89.8 fL (78.0-98.0); Mean Platelet Volume 7.2 fL (7.4-10.4); Platelet Count 206 thou/uL (130-400); RBC Distribution Width 13.3 % (11.5-14.5); Red Blood Cell (RBC) Count 3.37 mill/uL (4.20-5.40); White Blood Cell (WBC) Count 12.3 thou/uL (4.8-10.8)
[2019-02-28 04:46] LABS: Anion Gap 9 mmol/L (10-20); BUN (Urea Nitrogen) 12 mg/dL (9.8-20.1); Calc. Creatinine Clearance 184 mL/min (70-130); Calcium 8.1 mg/dL (7.8-10.44); Carbon Dioxide 28 mmol/L (22-29); Chloride 107 mmol/L (98-107); Estimated GFR-MDRD 86; Glucose 122 mg/dL (70-105); Potassium 4.3 mmol/L (3.5-5.1); Sodium 140 mmol/L (136-145)
[2019-02-28] MEDS: Levothyroxine Sodium 125 MCG TAB PO SCH (05:30)
[2019-02-28] MEDS: CEFAZOLIN 2 GM in Premix Bag 1 BAG IVPB SCH (05:30)
[2019-02-28] MEDS: Famotidine/PF 20 mg/2ml Vial SLOW IVP SCH ×2 (09:16→21:03)
[2019-02-28] MEDS: Polyethylene Glycol 3350 17 GM Packet PO SCH (09:16)
[2019-02-28] MEDS: Aspirin 325 MG TAB PO SCH (09:17)
[2019-02-28] MEDS: Acetaminophen 325 MG TAB PO PRN ×3 (09:17→21:03)
--- NOTE | 2019-02-28 09:40 | RAD ---
CHEST 1 VIEW: COMPARISON: 02/27/2019. HISTORY: Status post open heart surgery. FINDINGS: Interval removal of an endotracheal tube. Redemonstration of sternotomy wires and a right-sided vasc ular catheter. Mediastinal drainage catheter also is noted. Normal cardiac silhouette. Lungs and pleural spaces are clear. No pneumothorax. IMPRESSION: Findings compatible with recent open heart surgery. POS: JUAN
[2019-02-28] MEDS ORDERED: Insulin Regular 300 UNITS/3 ML VIAL SC PRN (09:54)
[2019-02-28] MEDS ORDERED: Dextrose 50% Abboject 50 ML SYRINGE SLOW IVP PRN (09:54)
[2019-02-28] MEDS ORDERED: Dextrose 5% in Water 1,000 ML IV PRN (09:54)
[2019-02-28] MEDS ORDERED: Furosemide 40 MG/4 ML VIAL SLOW IVP SCH (10:00)
[2019-02-28] MEDS ORDERED: Insulin Glargine 16 UNITS in Pre-Filled Syringe 1 EACH SC SCH (11:45)
--- NOTE | 2019-02-28 17:17 | PDOC.HOSPP ---
- Subjective Encounter Date: 02/28/19 Encounter Time: 09:40 Subjective: Pt seen for followup re: hypotension. Reports discomfort from chest tubes. - Objective Vital Signs & Weight: Vital Signs (12 hours) Temp Pulse Ox 02/28/19 12:00 99.2 F 02/28/19 08:00 98.7 F 94 L Weight Weight 279 lb 12.266 oz Most Recent Monitor Data Heart Rate from ECG 80 NIBP 106/53 NIBP BP-Mean 70 Respiration from ECG 22 SpO2 93 I&O: 02/27/19 02/28/19 03/01/19 06:59 06:59 06:59 Intake Total 520 2941.5 909.0 Output Total 1300 1558 2030 Balance -780 1383.5 -1121.0 Result Diagrams: 02/28/19 03:55 02/28/19 03:55 Additional Labs: Accuchecks 02/28/19 02/28/19 02/28/19 17:07 12:32 10:51 POC Glucose 104 142 H 155 H 02/28/19 02/28/19 02/28/19 09:25 07:59 06:08 POC Glucose 223 H 134 H 139 H 02/28/19 02/28/19 02/28/19 05:08 04:14 03:21 POC Glucose 136 H 118 H 113 H 02/28/19 02/28/19 02/28/19 02:05 01:10 00:11 POC Glucose 117 H 120 H 141 H 02/27/19 02/27/19 02/27/19 23:11 22:07 21:11 POC Glucose 127 H 110 117 H 02/27/19 02/27/19 02/27/19 20:22 19:16 18:18 POC Glucose 132 H 127 H 138 H Labs and MARs reviewed by me EKG Reviewed by me: Yes (Tele: NSR) Hospitalist ROS - Review of Systems Cardiovascular: reports: chest pain. denies: palpitations, orthopnea, paroxysmal noc. dyspnea, edema, light headedness Gastrointestinal: denies: nausea, vomiting, abdominal pain, diarrhea, constipation, melena, hematochezia - Medication Medications: Active Medications Generic Name Dose Route Start Last Admin Trade Name Freq PRN Reason Stop Dose Admin Acetaminophen 650 mg 02/27/19 12:55 02/28/19 15:30 Tylenol PO 650 mg Q6H PRN Administration Headache/Fever Or Mild Pain Hydrocodone Bitart/Acetaminophen 2 tab 02/27/19 12:55 02/28/19 03:26 [place] 5/325 PO 2 tab Q4H PRN Administration Severe Pain (7-10) Aspirin 325 mg 02/28/19 09:00 02/28/19 09:17 Aspirin PO 325 mg DAILY DYLON Administration Famotidine 20 mg 02/27/19 21:00 02/28/19 09:16 Pepcid SLOW IVP 20 mg Q12HR DYLON Administration Fentanyl 25 mcg 02/27/19 12:55 02/27/19 21:02 Sublimaze SLOW IVP 03/01/19 12:16 25 mcg Q2H PRN Administration Moderate Pain (4-6) Insulin Glargine 16 units/ 0.16 mls @ 0 mls/hr 02/28/19 11:45 02/28/19 11:55 Miscellaneous Medication SC 02/28/19 18:00 0.16 mls NOW DYLON Administration Insulin Human Regular 0 units 02/28/19 09:54 02/28/19 13:12 Humulin R SC 3 unit .AGGRESSIVE SLIDING PRN Administration Aggressive Correctional Scale Ketorolac Tromethamine 15 mg 02/27/19 18:00 02/28/19 11:51 Toradol IVP 03/02/19 18:01 15 mg Q6HR DYLON Administration Levothyroxine Sodium 125 mcg 02/28/19 06:00 02/28/19 05:30 Synthroid PO 125 mcg 0600 DYLON Administration Polyethylene Glycol 17 gm 02/28/19 09:00 02/28/19 09:16 Miralax PO 17 gm DAILY DYLON Administration - Exam General - other findings: Morbid obesity Eye: anicteric sclera ENT: moist mucosa Neck: supple Heart: RRR Respiratory: CTAB Gastrointestinal: soft, non-tender Extremities: no clubbing Neurological: no weakness Psychiatric: normal affect, normal behavior Hosp A/P - Plan ASSESSMENT: Hypotension CP Severe CAD Morbid Obesity 44.6 DM2 Anxiety PLAN: Pt on leophed for vasopressor support. CABG yesterday Cont ASA/Statin Cont other meds Cont supportive care
[2019-02-28] MEDS: Atorvastatin Calcium 40 MG TAB PO SCH (21:03)
[2019-02-28] MEDS ORDERED: Cepastat Lozenges 1 LOZ PO PRN (23:28)
[2019-03-01] MEDS: Ketorolac Tromethamine 30 MG/ML VIAL IVP SCH ×2 (00:03→06:07)
[2019-03-01 04:18] LABS: #Eosinphils 0.1 thou/uL (0.0-0.7); #Lymphocytes 1.5 thou/uL (1.20-3.40); #Monocytes 0.7 thou/uL (0.11-0.59); #Neutrophils 6.1 thou/uL (1.40-6.50); %Basophils 0.3 % (0.0-1.0); %Eosinophils 0.7 % (0.0-10.0); %Lymphocytes 17.4 % (21.0-51.0); %Monocytes 8.6 % (0.0-10.0); Hemoglobin 9.1 g/dL (12.0-16.0); Mean Corpuscular HGB CONC 33.5 g/dL (32.0-36.0); Mean Corpuscular Hemoglobin 29.8 pg (27.0-31.0); Mean Platelet Volume 6.9 fL (7.4-10.4); Platelet Count 157 thou/uL (130-400); RBC Distribution Width 13.5 % (11.5-14.5); Red Blood Cell (RBC) Count 3.05 mill/uL (4.20-5.40); White Blood Cell (WBC) Count 8.4 thou/uL (4.8-10.8)
[2019-03-01] MEDS: Acetaminophen 325 MG TAB PO PRN ×3 (04:29→16:54)
[2019-03-01 04:31] LABS: Carbon Dioxide 27 mmol/L (22-29); Glucose 112 mg/dL (70-105)
[2019-03-01 05:06] LABS: BUN (Urea Nitrogen) 11 mg/dL (9.8-20.1); Calc. Creatinine Clearance 188 mL/min (70-130); Calcium 8.3 mg/dL (7.8-10.44); Chloride 106 mmol/L (98-107); Estimated GFR-MDRD 88; Sodium 141 mmol/L (136-145)
[2019-03-01 05:16] LABS: Anion Gap 12 mmol/L (10-20)
[2019-03-01] MEDS: Levothyroxine Sodium 125 MCG TAB PO SCH (06:07)
[2019-03-01] MEDS: Polyethylene Glycol 3350 17 GM Packet PO SCH (07:35)
[2019-03-01] MEDS: Aspirin 325 MG TAB PO SCH (07:40)
[2019-03-01] MEDS: Famotidine/PF 20 mg/2ml Vial SLOW IVP SCH (07:40)
[2019-03-01] MEDS ORDERED: Insulin Regular 300 UNITS/3 ML VIAL SC PRN (10:37)
[2019-03-01] MEDS ORDERED: Nitroglycerin 0.4 MG TAB (25 Tab Bottle) SL PRN (10:37)
[2019-03-01] MEDS ORDERED: Bisacodyl 10 MG SUPP PR PRN (10:37)
[2019-03-01] MEDS ORDERED: Dextrose 5% in Water 1,000 ML IV PRN (10:37)
[2019-03-01] MEDS ORDERED: diphenhydrAMINE 25 MG CAP PO PRN (10:37)
[2019-03-01] MEDS ORDERED: Mineral Oil ENEMA PR PRN (10:37)
[2019-03-01] MEDS ORDERED: Zolpidem Tartrate 5 MG TAB PO PRN (10:37)
[2019-03-01] MEDS ORDERED: Bisacodyl 5 MG TAB PO PRN (10:37)
[2019-03-01] MEDS ORDERED: Dextrose 50% Abboject 50 ML SYRINGE SLOW IVP PRN (10:37)
[2019-03-01] MEDS ORDERED: Mag-Al 1200 mg/1200 mg/30 ML UDCUP PO PRN (10:37)
[2019-03-01] MEDS ORDERED: Artificial Tears 18 DROP/0.9 ML EA EYE PRN (10:37)
[2019-03-01] MEDS ORDERED: Guaifenesin DM 100-10/5 ML UDCUP PO PRN (10:37)
[2019-03-01] MEDS ORDERED: Furosemide 40 MG TAB PO SCH ×2 (10:45→11:00)
--- NOTE | 2019-03-01 10:51 | RAD ---
Exam: Chest one view HISTORY:Status post open heart surgery Comparison: 02/28/2019 FINDINGS: Cardiac silhouette:Cardiomegaly. Lines and tubes: Stable right-sided central venous catheter. Stable sternotomy wires. Aorta: Unremarkable Pulmonary vessels: Normal Costophrenic angles: Clear LUNGS: Persistent left perihilar infiltrate. Pneumothorax: None Osseous abnormalities: None IMPRESSION: 1. Findings compatible with recent open heart surgery. 2. Persistent left perihilar infiltrate.
[2019-03-01] MEDS ORDERED: Mometasone/Formoterol 120 PUFF INHALER INH SCH (12:15)
[2019-03-01] MEDS ORDERED: traMADol HCl 50 MG TAB PO PRN (14:28)
[2019-03-01] MEDS: traMADol HCl 50 MG TAB PO PRN ×2 (14:31→17:43)
--- NOTE | 2019-03-01 15:37 | PDOC.HOSPP ---
- Subjective Encounter Date: 03/01/19 Encounter Time: 09:00 Subjective: Pt seen for followup re: chest pain. Feels better. - Objective Vital Signs & Weight: Vital Signs (12 hours) Temp 03/01/19 11:00 98.8 F 03/01/19 07:00 99.5 F 03/01/19 05:00 99.1 F Weight Weight 279 lb 12.266 oz Most Recent Monitor Data Heart Rate from ECG 81 NIBP 153/73 NIBP BP-Mean 99 Respiration from ECG 30 SpO2 95 I&O: 02/28/19 03/01/19 03/02/19 06:59 06:59 06:59 Intake Total 2941.5 1589.0 1300 Output Total 1558 3117 1460 Balance 1383.5 -1528.0 -160 Result Diagrams: 03/01/19 04:05 03/01/19 04:05 Additional Labs: Accuchecks 03/01/19 03/01/19 02/28/19 11:22 06:26 21:05 POC Glucose 150 H 136 H 148 H 02/28/19 17:07 POC Glucose 104 Labs and MARs reviewed by me EKG Reviewed by me: Yes (Tele: NSR) Hospitalist ROS - Review of Systems Constitutional: denies: fever, chills, sweats, weakness, malaise Cardiovascular: reports: chest pain. denies: palpitations, orthopnea, paroxysmal noc. dyspnea, edema, light headedness - Medication Medications: Active Medications Generic Name Dose Route Start Last Admin Trade Name Freq PRN Reason Stop Dose Admin Albuterol/Ipratropium 3 ml 02/27/19 12:55 02/28/19 23:38 Duoneb NEB 3 ml [id number] PRN Administration SHORTNESS OF BREATH Atorvastatin Calcium 80 mg 02/28/19 21:00 02/28/19 21:03 Lipitor PO 80 mg HS DYLON Administration Levothyroxine Sodium 125 mcg 02/28/19 06:00 03/01/19 06:07 Synthroid PO 125 mcg 0600 DYLON Administration Polyethylene Glycol 17 gm 02/28/19 09:00 03/01/19 07:35 Miralax PO 17 gm DAILY DYLON Administration Throat Lozenges 1 saud 02/28/19 23:28 03/01/19 00:00 Cepastat Lozenges PO 1 saud PRN PRN Administration SORE THROAT Tramadol HCl 100 mg 03/01/19 14:28 03/01/19 14:31 Ultram PO 50 mg Q6H PRN Administration Severe Pain (7-10) - Exam General - other findings: Morbid obesity Eye: anicteric sclera ENT: normocephalic atraumatic Neck: no JVD Heart: RRR, no rubs Respiratory: CTAB Gastrointestinal: soft, non-tender Extremities: no clubbing Musculoskeletal: normal tone Psychiatric: normal affect, normal behavior Hosp A/P - Plan ASSESSMENT: CP Severe CAD Morbid Obesity 44.6 DM2 Anxiety PLAN: s/p CABG during this hospitalization. Cont aspirin and statin. Cont other meds Cont supportive care Hypotension resolved.
--- NOTE | 2019-03-01 16:24 | EKG ---
Test Reason : S/P CABG Blood Pressure : / mmHG Vent. Rate : 070 BPM Atrial Rate : 070 BPM P-R Int : 182 ms QRS Dur : 092 ms QT Int : 426 ms P-R-T Axes : 045 038 043 degrees QTc Int : 460 ms Normal sinus rhythm Normal ECG When compared with ECG of 24-FEB-2019 19:12, (Unconfirmed) No significant change was found Confirmed by DR. Altagracia WEISS ([id number]) on 03/01/2019 4:24:25 PM Referred By: KATY Confirmed By:DR. Altagracia WEISS
[2019-03-01] MEDS: Mometasone/Formoterol 120 PUFF INHALER INH SCH (18:19)
--- NOTE | 2019-03-01 21:29 | OP ---
DATE OF PROCEDURE: 02/27/2019 PREOPERATIVE DIAGNOSIS: Coronary artery disease. PROCEDURE PERFORMED: Coronary artery bypass graft x3; left internal mammary artery good quality to 1.25 mm left anterior descending, saphenous vein to a diseased 2.5 mm right coronary artery, and radial artery to a 1.25 to 1.5 mm diagonal. FINISHING TUNNEL OPERATOR: Ga Conteh MD. ADDITIONAL FINDINGS: The patient was morbidly obese and hard lie directly posterior to the sternum with no real space left in her chest at the time of wound closure and targets were marginal and would not recommend reoperation. DESCRIPTION OF PROCEDURE: After adequate anesthesia had been obtained, the patient was prepped and draped. Initially, I harvested the left radial artery after ensuring good collateral flow and treated it with papaverine. Arm wounds were then closed, following which I performed a median sternotomy while Dr. Conteh harvested the left greater saphenous vein. Left internal mammary artery was harvested. The patient was heparinized and the left pleura was not entered. The aorta was not visible with opening of the pericardium and thymus gland was removed to allow access to a short aorta. Aorta was cannulated after pulling down on the aorta to put in sutures in a pursestring fashion. Right atrium was cannulated and cardiopulmonary bypass was begun. Aorta was cross-clamped, and after a liter of cold blood cardioplegia, the 3 anastomoses were completed, passing a 1 mm probe distally in the LAD prior to completing the suture line. Following this, a single vein anastomosis was performed on the aortic root and marked with a ring into the talley of this. The radial artery was placed. All grafts lie nicely in the pericardium. Two mediastinal drains were placed while the patient was weaned from cardiopulmonary bypass. Cannulas were removed and protamine was given systemically. Following obtaining good hemostasis, the sternum was reapproximated with #7 interrupted wire using vancomycin paste on the sternal edges, platelet-rich blood, and platelet-poor plasma. Subcutaneous tissue and skin were closed in layers. Job ID: [id number]
--- NOTE | 2019-03-01 21:49 | CON ---
DATE OF CONSULTATION: HISTORY OF PRESENT ILLNESS: Dina Contreras is a 53-year-old morbidly obese, female, who apparently was sent to the hospital primary care physician, after she complained of chest pain and difficulty breathing. Cardiac CT angio was done, which shows calcification and coronary artery disease. She underwent cardiac cath and has since then undergone bypass surgery. She is in the ICU. She tells me she wheezes from [id number]. She smokes a pack a day for about 20 years, quit smoking about 5 years ago. History of asthmatic symptoms, but no history of pneumonia or TB in the past she is able to walk a fair distance without getting markedly short of breath. PAST MEDICAL HISTORY: Pertinent for diabetes, hypertension, sleep apnea, snores, witnessed apnea, day-time fatigue, and coronary artery disease. PREVIOUS SURGERIES: Tonsil, adenoids, and tubal ligation. HOME MEDICATIONS: Include: 1. Recent Advair. 2. Atorvastatin 80. 3. Metformin 500. 4. Lisinopril 20. 5. Synthroid 125. ALLERGIES: NONE. SOCIAL HISTORY: REVIEW OF SYSTEMS: Otherwise, negative. PHYSICAL EXAMINATION: VITAL SIGNS: Temperature 99, blood pressure 140/74, pulse 80, respiratory rate 18. CHEST: Minimal wheezing. CARDIAC: Normal S1, S2. No gallops. ABDOMEN: No masses. LABORATORY DATA: White count normal. H and H unremarkable. DIAGNOSTIC STUDIES: Chest x-ray shows no acute infiltrates. IMPRESSION: 1. Morbid obesity, former smoker, sleep apnea, status post coronary artery bypass grafting. 2. Asthmatic bronchitis. 3. Diabetes. 4. Hypertension. PLAN: I have added Dulera to her present regime. Outpatient sleep study. PT. Supportive care. Consultation note, 70 minutes, 50% direct patient care. Job ID: [id number]
[2019-03-01] MEDS: Metoprolol Tartrate 25 MG TAB PO SCH (21:52)
[2019-03-01] MEDS: Atorvastatin Calcium 40 MG TAB PO SCH (21:53)
[2019-03-02 05:24] VITALS: BMI 45.1
[2019-03-02] MEDS: Levothyroxine Sodium 125 MCG TAB PO SCH (05:55)
[2019-03-02] MEDS: Mometasone/Formoterol 120 PUFF INHALER INH SCH ×2 (07:18→19:30)
--- NOTE | 2019-03-02 08:30 | PRG ---
DATE OF SERVICE: 03/02/2019 SUBJECTIVE: Dina De La Cruz status post CABG. She is doing well. Less short of breath. Less wheezing. OBJECTIVE: VITAL SIGNS: Temperature 97, blood pressure 140/64, pulse 80, and respiratory rate of 18. CHEST: No wheezing. CARDIAC: Normal S1 and S2. No gallops. ABDOMEN: No masses. IMPRESSION: 1. Coronary artery bypass grafting. 2. Obesity. 3. Asthma. 4. Probably sleep apnea. PLAN: Continue sj Hatch treatments, supportive care, outpatient sleep study. Job ID: [id number]
[2019-03-02] MEDS: Metoprolol Tartrate 25 MG TAB PO SCH ×2 (09:39→20:51)
[2019-03-02] MEDS: Polyethylene Glycol 3350 17 GM Packet PO SCH (09:39)
[2019-03-02] MEDS: Furosemide 40 MG TAB PO SCH (09:39)
[2019-03-02] MEDS: Aspirin 325 mg Enteric Coated Tablet PO SCH (09:39)
[2019-03-02] MEDS: Acetaminophen 325 MG TAB PO PRN ×2 (12:40→19:36)
--- NOTE | 2019-03-02 14:11 | PDOC.HOSPP ---
- Subjective Encounter Date: 03/02/19 Encounter Time: 08:00 Subjective: Pt seen for followup re; chest pain. Feels better today. - Objective Vital Signs & Weight: Vital Signs (12 hours) Temp Pulse Pulse BP BP Pulse Ox Pulse Ox 03/02/19 12:00 97.8 F 03/02/19 09:00 93 76 137/72 98/64 98 03/02/19 08:00 97.8 F 95 03/02/19 04:00 98.5 F Pulse Ox 03/02/19 12:00 03/02/19 09:00 95 03/02/19 08:00 03/02/19 04:00 Weight Weight 279 lb 15.793 oz Most Recent Monitor Data Heart Rate from ECG 85 NIBP 145/74 NIBP BP-Mean 97 Respiration from ECG 16 SpO2 100 I&O: 03/01/19 03/02/19 03/03/19 06:59 06:59 06:59 Intake Total 1589.0 1780 120 Output Total 3117 3490 640 Balance -1528.0 -1710 -520 Result Diagrams: 03/01/19 04:05 03/01/19 04:05 Additional Labs: Accuchecks 03/02/19 03/01/19 03/01/19 11:23 21:55 16:05 POC Glucose 127 H 118 H 107 Labs and MARs reviewed by me EKG Reviewed by me: Yes (Tele; NSR) Hospitalist ROS - Review of Systems Cardiovascular: denies: chest pain, palpitations, orthopnea, paroxysmal noc. dyspnea, edema, light headedness Gastrointestinal: denies: nausea, vomiting, abdominal pain, diarrhea, constipation, melena, hematochezia - Medication Medications: Active Medications Generic Name Dose Route Start Last Admin Trade Name Freq PRN Reason Stop Dose Admin Acetaminophen 650 mg 03/01/19 14:29 03/02/19 12:40 Tylenol PO 650 mg Q6H PRN Administration Headache/Fever or Pain Albuterol/Ipratropium 3 ml 02/27/19 12:55 02/28/19 23:38 Duoneb NEB 3 ml [id number] PRN Administration SHORTNESS OF BREATH Aspirin 325 mg 03/02/19 09:00 03/02/19 09:39 Ecotrin PO 325 mg DAILY DYLON Administration Atorvastatin Calcium 80 mg 02/28/19 21:00 03/01/19 21:53 Lipitor PO 80 mg HS DYLON Administration Furosemide 40 mg 03/02/19 09:00 03/02/19 09:39 Lasix PO 40 mg DAILY DYLON Administration Levothyroxine Sodium 125 mcg 02/28/19 06:00 03/02/19 05:55 Synthroid PO 125 mcg 0600 DYLON Administration Metoprolol Tartrate 25 mg 03/01/19 21:00 03/02/19 09:39 Lopressor PO 25 mg BID DYLON Administration Mometasone Furoate/Formoterol Fumar 2 puff 03/01/19 18:30 03/02/19 07:18 Dulera 200 Mcg/5 Mcg Inhaler INH 2 puff BID-RT DYLON Administration Polyethylene Glycol 17 gm 02/28/19 09:00 03/02/19 09:39 Miralax PO 17 gm DAILY DYLON Administration Sodium Chloride 10 ml 03/01/19 21:00 03/02/19 09:42 Flush - Normal Saline IVF 10 ml Q12HR DYLON Administration Throat Lozenges 1 saud 02/28/19 23:28 03/01/19 00:00 Cepastat Lozenges PO 1 saud PRN PRN Administration SORE THROAT Tramadol HCl 100 mg 03/01/19 14:28 03/01/19 17:43 Ultram PO 100 mg Q6H PRN Administration Severe Pain (7-10) Zolpidem Tartrate 5 mg 03/01/19 10:37 03/02/19 00:24 Ambien PO 5 mg HSPRN PRN Administration Insomnia - Exam General - other findings: Morbid obesity Eye: PERRL ENT: no oropharyngeal lesions Neck: supple Heart: RRR Respiratory: no rales Gastrointestinal: soft Extremities: no clubbing Musculoskeletal: no muscle wasting Psychiatric: normal affect, normal behavior Hosp A/P - Plan ASSESSMENT: CP Severe CAD Morbid Obesity 44.6 DM2 Anxiety PLAN: Chest tubes removed. s/p CABG during this hospitalization. Cont aspirin and statin. Pt awaiting telemetry bed.
--- NOTE | 2019-03-02 16:34 | PRG ---
DATE OF SERVICE: 03/02/2019 SUBJECTIVE: Ms. De La Cruz is doing well, no current complaints. She is status post bypass surgery. She has been awaiting transfer to telemetry monitoring. No beds available. She states she has been ambulating with physical therapy. OBJECTIVE: VITAL SIGNS: Blood pressure 123/72, pulse 84, respirations 20. LUNGS: Clear to auscultation. HEART: Regular rate and rhythm. ABDOMEN: Soft, nontender, and nondistended. EXTREMITIES: No edema. IMPRESSION: 1. Coronary artery disease. 2. Status post bypass surgery. 3. Diabetes mellitus. 4. Previous tobacco abuse. RECOMMENDATIONS: 1. Continue physical therapy and incentive spirometry. 2. Continue aspirin 325 q.a.m. 3. Continue metoprolol and atorvastatin. Job ID: [id number]
[2019-03-02] MEDS: Atorvastatin Calcium 40 MG TAB PO SCH (20:52)
[2019-03-03] MEDS: Levothyroxine Sodium 125 MCG TAB PO SCH (05:44)
[2019-03-03] MEDS: Acetaminophen 325 MG TAB PO PRN ×2 (05:44→18:12)
[2019-03-03] MEDS: Mometasone/Formoterol 120 PUFF INHALER INH SCH (07:30)
--- NOTE | 2019-03-03 09:15 | PRG ---
DATE OF SERVICE: 03/03/2019 SUBJECTIVE: This morning, she says she is still wheezing. Mamie is not working as well as the Advair. Therefore, she is to use her home Advair 250/50 one puff twice a day. OBJECTIVE: VITAL SIGNS: Temperature 79, pulse 70, respiratory rate 18, saturations 98% on room air, blood pressure 142/76. CHEST: Minimal wheezing. CARDIAC: Normal S1, S2, no gallops. ABDOMEN: No masses. ASSESSMENT: 1. Status post coronary artery bypass grafting. 2. Asthma. PLAN: Continue PT. Home Advair. Disposition as per Cardiology. Job ID: [id number]
[2019-03-03] MEDS: Aspirin 325 mg Enteric Coated Tablet PO SCH (09:48)
[2019-03-03] MEDS: Furosemide 40 MG TAB PO SCH (09:48)
[2019-03-03] MEDS: Metoprolol Tartrate 25 MG TAB PO SCH ×2 (09:48→20:30)
[2019-03-03] MEDS: Polyethylene Glycol 3350 17 GM Packet PO SCH (09:49)
[2019-03-03] MEDS ORDERED: Clopidogrel Bisulfate 75 MG TAB ONE (17:30)
--- NOTE | 2019-03-03 19:03 | PDOC.HOSPP ---
- Subjective Encounter Date: 03/03/19 Encounter Time: 09:00 Subjective: Pt seen for followup re: chest pain. Feels better. - Objective Vital Signs & Weight: Vital Signs (12 hours) Temp Pulse Pulse Pulse Resp BP BP 03/03/19 16:30 98.2 F 81 20 03/03/19 11:22 97.8 F 86 18 03/03/19 10:51 97 90 143/81 H 132/75 03/03/19 07:42 97.9 F 71 18 BP Pulse Ox Pulse Ox Pulse Ox 03/03/19 16:30 118/61 94 L 03/03/19 11:22 134/69 95 03/03/19 10:51 95 93 L 03/03/19 07:42 143/76 H 94 L Weight Weight 277 lb 1.6 oz Most Recent Monitor Data Heart Rate from ECG 85 NIBP 145/74 NIBP BP-Mean 97 Respiration from ECG 16 SpO2 100 I&O: 03/02/19 03/03/19 03/04/19 06:59 06:59 06:59 Intake Total 8182 690 0836 Output Total 3490 1390 1340 Balance -1710 -1020 -250 Result Diagrams: 03/01/19 04:05 03/01/19 04:05 Additional Labs: Accuchecks 03/03/19 03/03/19 03/03/19 17:00 10:53 05:58 POC Glucose 168 H 177 H 140 H 03/02/19 20:25 POC Glucose 143 H Labs and MARs reviewed by me EKG Reviewed by me: Yes (Tele: NSR) Hospitalist ROS - Review of Systems Cardiovascular: denies: chest pain, palpitations, orthopnea, paroxysmal noc. dyspnea, edema, light headedness Gastrointestinal: denies: nausea, vomiting, abdominal pain, diarrhea, constipation, melena, hematochezia - Medication Medications: Active Medications Generic Name Dose Route Start Last Admin Trade Name Freq PRN Reason Stop Dose Admin Acetaminophen 650 mg 03/01/19 14:29 03/03/19 18:12 Tylenol PO 650 mg Q6H PRN Administration Headache/Fever or Pain Albuterol/Ipratropium 3 ml 02/27/19 12:55 02/28/19 23:38 Duoneb NEB 3 ml [id number] PRN Administration SHORTNESS OF BREATH Aspirin 325 mg 03/02/19 09:00 03/03/19 09:48 Ecotrin PO 325 mg DAILY DYLON Administration Atorvastatin Calcium 80 mg 02/28/19 21:00 03/02/19 20:52 Lipitor PO 80 mg HS DYLON Administration Furosemide 40 mg 03/02/19 09:00 03/03/19 09:48 Lasix PO 40 mg DAILY DYLON Administration Insulin Human Regular 0 units 03/01/19 10:37 03/03/19 17:25 Humulin R SC 2 unit .MODERATE SLIDING SC PRN Administration Moderate Correctional Scale Levothyroxine Sodium 125 mcg 02/28/19 06:00 03/03/19 05:44 Synthroid PO 125 mcg 0600 DYLON Administration Metoprolol Tartrate 25 mg 03/01/19 21:00 03/03/19 09:48 Lopressor PO 25 mg BID DYLON Administration Polyethylene Glycol 17 gm 02/28/19 09:00 03/03/19 09:49 Miralax PO Not Given DAILY DYLON Sodium Chloride 10 ml 03/01/19 21:00 03/03/19 09:49 Flush - Normal Saline IVF 10 ml Q12HR DYLON Administration Throat Lozenges 1 saud 02/28/19 23:28 03/01/19 00:00 Cepastat Lozenges PO 1 saud PRN PRN Administration SORE THROAT Tramadol HCl 50 mg 03/01/19 14:28 03/02/19 20:51 Ultram PO 50 mg Q6H PRN Administration Moderate Pain (4-6) Tramadol HCl 100 mg 03/01/19 14:28 03/01/19 17:43 Ultram PO 100 mg Q6H PRN Administration Severe Pain (7-10) Zolpidem Tartrate 5 mg 03/01/19 10:37 03/02/19 00:24 Ambien PO 5 mg HSPRN PRN Administration Insomnia - Exam General - other findings: Morbid obesity Eye: anicteric sclera ENT: normocephalic atraumatic, moist mucosa Neck: supple Heart: RRR Respiratory: CTAB Gastrointestinal: soft Psychiatric: normal affect, normal behavior Hosp A/P - Plan ASSESSMENT: CP Severe CAD Morbid Obesity 44.6 DM2 Anxiety PLAN: s/p CABG during this hospitalization. Cont aspirin and statin. Resume metformin. Likely home tomorrow.
[2019-03-03] MEDS: Atorvastatin Calcium 40 MG TAB PO SCH (20:30)
[2019-03-03] MEDS: traMADol HCl 50 MG TAB PO PRN (20:35)
[2019-03-04] MEDS: Levothyroxine Sodium 125 MCG TAB PO SCH (05:28)
[2019-03-04] MEDS ORDERED: metFORMIN XR 500 MG TAB PO SCH (09:00)
--- NOTE | 2019-03-04 09:30 | PRG ---
DATE OF SERVICE: 03/04/2019 SUBJECTIVE: This morning, she is awake, alert, and responsive. Denies any wheezing or shortness of breath. OBJECTIVE: VITAL SIGNS: Her vital signs are stable. Saturations are 98% on room air. CHEST: No wheezing. CARDIAC: Normal S1, S2. No gallops. ABDOMEN: No masses. ASSESSMENT: 1. Status post coronary artery bypass graft. 2. Sleep apnea. 3. Asthma. DISPOSITION: Home. She can see me in the office for an outpatient sleep study. Job ID: [id number]
[2019-03-04] MEDS: Aspirin 325 mg Enteric Coated Tablet PO SCH (09:43)
[2019-03-04] MEDS: Metoprolol Tartrate 25 MG TAB PO SCH (09:43)
[2019-03-04] MEDS: Furosemide 40 MG TAB PO SCH (09:43)
[2019-03-04 09:48] VITALS: BP 114/68; TEMP 98
[2019-03-04] MEDS: Polyethylene Glycol 3350 17 GM Packet PO SCH (12:03)
--- NOTE | 2019-03-04 19:10 | DIS ---
DATE OF ADMISSION: 02/24/2019 DATE OF DISCHARGE: 03/04/2019 PRIMARY CARE PROVIDER: Dr. Alok Bosch. DISCHARGE DIAGNOSES: 1. Chest pain. 2. Coronary artery disease. CONDITION OF PATIENT ON THE DAY OF DISCHARGE: Stable. I assessed Ms. De La Cruz on the day of discharge. She denies any chest pain or shortness of breath. Vital signs are stable. S1 and S2 are heard, regular. Lungs are clear to auscultation bilaterally. CONSULTATIONS DURING THIS HOSPITALIZATION: Cardiology, Dr. Chase and CV Surgery, Dr. Rowland. HOSPITAL COURSE: Ms. De La Cruz is a pleasant 53-year-old lady, who was admitted to [facility] on 02/25/2019, for chest pain. She was seen by Cardiology Service. She was found to have severe coronary artery disease on cardiac catheterization. Left ventricular ejection fraction was 55% to 60%. She had E/ A flow reversal, suggestive of diastolic dysfunction, mild mitral regurgitation, mild tricuspid regurgitation, and normal pulmonary artery pressure. She was seen by CV Surgery Service. On 02/27/2019, she underwent coronary artery bypass graft x3. She continued to improve. She is being discharged home in a stable condition. POST-ACUTE CARE FOLLOWUP: With CV Surgery, Dr. Rowland on 03/25/2019, at 1:00 pm; with Dr. Chase in 3 to 4 weeks; with primary care provider on 03/06/2019, at 4:00 pm. She has also been advised to follow up with cardiac rehabilitation. ACTIVITY: As tolerated. DIET: Diabetic and heart healthy. ACTIVITY: As tolerated. Many thanks for allowing me to participate in your patient's care. Please feel free to contact me with any questions or concerns. DISCHARGE DESTINATION: Home. TIME SPENT: Total amount of time spent coordinating this discharge: 15 minutes. Job ID: [id number] MTDD
--- NOTE | 2019-03-05 04:47 | DIS ---
DATE OF ADMISSION: 02/24/2019 DATE OF DISCHARGE: 03/04/2019 This is a 53-year-old female who was admitted to the hospital with chest pains and negative cardiac enzymes. Cardiac catheterization demonstrated 3-vessel coronary artery disease. She was scheduled for surgical intervention. Her surgery was scheduled for 02/26/2019 and moved to 02/27/2019 due to an emergency and she underwent 3-vessel bypass grafting to the LAD, main right coronary artery and a small diagonal. Her postoperative course was relatively unremarkable with no significant arrhythmias. She was ambulating in the [place]. She will be discharged home with a hemoglobin of about 9 grams. Her creatinine was less than 1. Her sugars were somewhat variable, but generally in the 150 to 200 range on her admitting dose of metformin. She will be discharged home on her home medications of atorvastatin 80, metformin 500, Synthroid 125 and Lexapro 20. She will also continue with furosemide 40 mg daily for about 5 days, metoprolol 25 b.i.d. and aspirin 81 mg a day. Discharge and followup instructions have been given. Job ID: [id number]
== END 2019-03-04 13:03 | disposition home or self-care (01) | DRG 234 ==
LOC: ERS 19:02 → OBSVTOIN 21:25 → 2SW 21:25 → CCU 02-27 06:42 → 2SW 02-27 06:50 → CCU 02-27 06:53 → 2NO 03-02 14:46
PROVIDERS: ADMIT Family Medicine; ATTEND Family Medicine
PROC: 4A023N7 Measurement of Cardiac Sampling and Pressure, Left Heart, Percutaneous Approach (ICD-10-PCS; 2019-02-25)
PROC: B2111ZZ Fluoroscopy of Multiple Coronary Arteries using Low Osmolar Contrast (ICD-10-PCS; 2019-02-25)
PROC: B2151ZZ Fluoroscopy of Left Heart using Low Osmolar Contrast (ICD-10-PCS; 2019-02-25)
PROC: 02100Z9 Bypass Coronary Artery, One Artery from Left Internal Mammary, Open Approach (ICD-10-PCS; principal; 2019-02-27)
PROC: 02100AW Bypass Coronary Artery, One Artery from Aorta with Autologous Arterial Tissue, Open Approach (ICD-10-PCS; 2019-02-27)
PROC: 021009W Bypass Coronary Artery, One Artery from Aorta with Autologous Venous Tissue, Open Approach (ICD-10-PCS; 2019-02-27)
PROC: 06BQ4ZZ Excision of Left Saphenous Vein, Percutaneous Endoscopic Approach (ICD-10-PCS; 2019-02-27)
PROC: 03BC4ZZ Excision of Left Radial Artery, Percutaneous Endoscopic Approach (ICD-10-PCS; 2019-02-27)
PROC: 5A1221Z Performance of Cardiac Output, Continuous (ICD-10-PCS; 2019-02-27)
DX: I25.10 Atherosclerotic heart disease of native coronary artery without angina pectoris (principal); Z68.41 Body mass index [BMI] 40.0-44.9, adult; I08.3 Combined rheumatic disorders of mitral, aortic and tricuspid valves; I10 Essential (primary) hypertension; E78.5 Hyperlipidemia, unspecified; E11.9 Type 2 diabetes mellitus without complications; F41.9 Anxiety disorder, unspecified; F32.9 Major depressive disorder, single episode, unspecified; Z98.51 Tubal ligation status; Z79.84 Long term (current) use of oral hypoglycemic drugs; E03.9 Hypothyroidism, unspecified; E66.01 Morbid (severe) obesity due to excess calories; F17.200 Nicotine dependence, unspecified, uncomplicated; I95.9 Hypotension, unspecified; G47.30 Sleep apnea, unspecified; J45.909 Unspecified asthma, uncomplicated
CPT/HCPCS: 36415; 36416; 36430; 71045; 76942; 80048; 80053; 80061; 82550; 82805; 83036; 84484; 85025; 85610; 85730; 86850; 86900; 86901; 93005; 93010; 93306; 93458; 93798; 94002; 94150; 94640; 94760; 99152; C1769; J0690; J1642; J1644; J1815; J1885; J1940; J2001; J2250; J2440; J2704; J2720; J3010; J3370; J3475; J3480; J3490; J7620; P9045; Q9967; S0017; S0028

== ENCOUNTER 2020-04-15 23:34 | Emergency (ER) | payer SELFPAY ==
[2020-04-16 00:12] LABS: #Lymphocytes 1.5 thou/uL (1.20-3.40); #Monocytes 0.4 thou/uL (0.11-0.59); #Neutrophils 1.6 thou/uL (1.40-6.50); %Basophils 0.9 % (0.0-1.0); %Eosinophils 0.9 % (0.0-10.0); %Neutrophils 44.2 % (42.0-75.0); Hemoglobin 13.6 g/dL (12.0-16.0); Mean Corpuscular HGB CONC 32.2 g/dL (32.0-36.0); Mean Corpuscular Hemoglobin 28.4 pg (27.0-31.0); Mean Corpuscular Volume 88.2 fL (78.0-98.0); Mean Platelet Volume 7.4 fL (7.4-10.4); Platelet Count 224 thou/uL (130-400); RBC Distribution Width 13.8 % (11.5-14.5); Red Blood Cell (RBC) Count 4.79 mill/uL (4.20-5.40); White Blood Cell (WBC) Count 3.6 thou/uL (4.8-10.8)
[2020-04-16] MEDS ORDERED: Dexamethasone 10 MG/ML VIAL ONE (00:27)
[2020-04-16 00:33] LABS: ALT (SGPT) 69 U/L (8-55); AST (SGOT) 75 U/L (5-34); Albumin 3.7 g/dL (3.5-5.0); Alkaline Phosphatase 80 U/L (40-110); Anion Gap 14 mmol/L (10-20); BUN (Urea Nitrogen) 14 mg/dL (9.8-20.1); Bilirubin, Total 0.3 mg/dL (0.2-1.2); Calc. Creatinine Clearance 0 mL/min (70-130); Calcium 8.6 mg/dL (7.8-10.44); Carbon Dioxide 28 mmol/L (22-29); Chloride 99 mmol/L (98-107); Glucose 298 mg/dL (70-105); Potassium 3.9 mmol/L (3.5-5.1); Protein, Total 6.7 g/dL (6.0-8.3); Sodium 137 mmol/L (136-145)
[2020-04-16 04:26] LABS: SARS-CoV-2 MS2 Positive; SARS-CoV-2 N Gene Positive; SARS-CoV-2 S Gene Positive; SARS-CoV-2 by NAA DETECTED (NotDetected); SARS-CoV-2 orf1ab Positive
--- NOTE | 2020-04-16 08:09 | RAD ---
EXAM: Chest one view: HISTORY: Dyspnea COMPARISON: 03/01/2019 FINDINGS: Postop midline sternotomy. Mild stable increased bronchovascular markings. Heart size: Within normal limits. Lungs: Clear of acute process. No evidence for confluent lobar pneumonia, significant pleural effusion, acute edema, or pneumothorax , or other significant acute process. IMPRESSION: No significant acute intrathoracic disease. Overall appearance is slightly improved from prior exams. No new process.
== END 2020-04-16 00:35 | disposition home or self-care (01) ==
LOC: ERS 23:34
DX: U07.1 COVID-19 (principal); E11.9 Type 2 diabetes mellitus without complications; E78.5 Hyperlipidemia, unspecified; E66.9 Obesity, unspecified; Z87.891 Personal history of nicotine dependence; Z79.84 Long term (current) use of oral hypoglycemic drugs; Z79.899 Other long term (current) drug therapy
CPT/HCPCS: 36415; 71045; 80053; 85025; 85652; 86140; 87635; 93005; J1100; U0003

== ENCOUNTER 2022-03-08 15:37 | Emergency (ER) | payer SELFPAY ==
[2022-03-08 16:23] LABS: #Eosinphils 0.1 thou/uL (0.0-0.7); #Monocytes 0.4 thou/uL (0.11-0.59); #Neutrophils 4.1 thou/uL (1.40-6.50); %Eosinophils 2.1 % (0.0-10.0); %Lymphocytes 30.2 % (21.0-51.0); %Monocytes 6.4 % (0.0-10.0); %Neutrophils 61.3 % (42.0-75.0); Hemoglobin 12.8 g/dL (12.0-16.0); Mean Corpuscular HGB CONC 31.9 g/dL (32.0-36.0); Mean Corpuscular Hemoglobin 27.4 pg (27.0-31.0); Mean Corpuscular Volume 85.9 fl (78.0-98.0); Mean Platelet Volume 7.9 fL (7.4-10.4); Platelet Count 269 10x3/uL (130-400); RBC Distribution Width 14.3 % (11.5-14.5); Red Blood Cell (RBC) Count 4.68 mill/uL (4.20-5.40); White Blood Cell (WBC) Count 6.7 10x3/uL (4.8-10.8)
[2022-03-08] MEDS ORDERED: Acetaminophen 500 MG TAB ONE (16:32)
[2022-03-08] MEDS ORDERED: Ondansetron PF 4 MG/2 ML Vial ONE (16:32)
[2022-03-08] MEDS ORDERED: Ketorolac Tromethamine 30 MG/ML VIAL ONE (16:32)
[2022-03-08 16:48] LABS: ALT (SGPT) 19 U/L (8-55); AST (SGOT) 15 U/L (5-34); Albumin 3.9 g/dL (3.5-5.0); Alkaline Phosphatase 83 U/L (40-110); Anion Gap 15 mmol/L (10-20); BUN (Urea Nitrogen) 13 mg/dL (9.8-20.1); Bilirubin, Total 0.4 mg/dL (0.2-1.2); Calc. Creatinine Clearance 0 mL/min (70-130); Calcium 9.1 mg/dL (7.8-10.44); Carbon Dioxide 24 mmol/L (22-29); Chloride 100 mmol/L (98-107); Estimated GFR 81; Globulin 3.1 g/dL (2.4-3.5); Glucose 298 mg/dL (70-105); Potassium 4.1 mmol/L (3.5-5.1); Sodium 135 mmol/L (136-145)
[2022-03-08 17:38] LABS: SARS-CoV-2 NAA Rapid Test Not Detected (NotDetected)
== END 2022-03-08 18:36 | disposition home or self-care (01) ==
LOC: ERS 15:37
DX: B34.9 Viral infection, unspecified (principal); J06.9 Acute upper respiratory infection, unspecified; I25.10 Atherosclerotic heart disease of native coronary artery without angina pectoris; E11.9 Type 2 diabetes mellitus without complications; E78.5 Hyperlipidemia, unspecified; Z20.822 Contact with and (suspected) exposure to COVID-19; Z87.891 Personal history of nicotine dependence
CPT/HCPCS: 71045; 80053; 83880; 84484; 85025; 93005; 96374; 96375; J1885; J2405